=== PATIENT | female | born 1965 ===

== ENCOUNTER 2023-04-16 20:32 | Outpatient (REF) | payer OTHER, SELFPAY ==
[2023-04-22 11:09] LABS: Age Gdln ACOG Testing Note (.); HPV Aptima Negative (Negative); IGP, Aptima HPV, rfx 16/18,45 Note (.)
== END 2023-04-16 20:33 | disposition home or self-care (01) ==
LOC: LAB 20:32
PROVIDERS: Visit Provider Obstetrics & Gynecology
DX: Z01.419 Encounter for gynecological examination (general) (routine) without abnormal findings (principal)
CPT/HCPCS: 87624; G0145

== ENCOUNTER 2024-04-28 21:51 | Outpatient (REF) | payer OTHER, SELFPAY ==
--- OUTSIDE RECORDS SUMMARY | 2024-04-28 21:57 | XMS_ITS | CCD ---
Author Organization [facility] Inform ion Partnership [facility] Care Team Providers [facility] Director Name Role Phone Varun Azul Primary Care Provider DR BERENICE CASAREZ Admitting Unavailable LEIDA, DR NG Attending Unavailable DR BERENICE CASAREZ Consulting Unavailable Varun Azul MD Primary Care Provider Varun Azul MD Primary Care Provider VARUN AZUL Attending Unavailable VARUN AZUL Referring Unavailable JORGE ALBERTO, VARUN Harris Primary Care Unavailable JORGE ALBERTO, VARUN Harris Attending Unavailable KIELESTVARUN OVALLES Referring Unavailable KIELESTCHARLETTE, VARUN Harris Primary Care Unavailable JORGE ALBERTO, VARUN Harris Referring Unavailable JORGE ALBERTO, VARUN Harris Primary Care Unavailable BERENICE CASAREZ Referring Unavailable JORGE ALBERTO, VARUN Harris Primary Care Unavailable BAR LYONS Referring Unavailable KIELESTCHARLETTE, VARUN Hraris Primary Care Unavailable BAR LYONS Referring Unavailable KIELESTCHARLETTE, VARUN Harris Primary Care Unavailable BAR LYONS Referring Unavailable JORGE ALBERTO, VARUN Harris Primary Care Unavailable BAR LYONS Admitting Unavailable BAR LYONS Attending Unavailable RUSHERBAR Referring Unavailable HIESTANDVARUN Primary Care Unavailable ESTUARDO WONG Attending Unavailable HIESTCHARLETTE, VARUN Harris Primary Care Unavailable SERENA, BAR Blanton Attending Unavailable RUSHER, BAR A Referring Unavailable RUSHER, BAR A Attending Unavailable RUSHER, BAR A Attending Unavailable RUSHER, BAR A Referring Unavailable RUSHER, BAR Blanton Attending Unavailable Medications Current Medications Medication Drug Class(es) Dates Sig (Normalized) Sig (Original) cephalexin 500 mg oral capsule (16 sources) Cephalosporin Antibacterial Start: 04-16-2023 End: 04-16-2023 take 1 capsule by mouth in the morning, then take 1 capsule by mouth in the evening, then take 1 capsule by mouth at bedtime cephalexin (Keflex) 500 MG capsule Indications: Vaginal irritation Take 1 capsule (500 mg) by mouth in the morning and 1 capsule (500 mg) in the evening and 1 capsule (500 mg) before bedtime. 40 capsule 1 04/16/2023 Active ciprofloxacin 250 mg oral tablet (3 sources) Quinolone Antimicrobial Start: 04-20-2024 End: 04-23-2024 take 1 tablet by mouth in the morning, then take 1 tablet by mouth at bedtime ciprofloxacin HCl (CIPRO) 250 mg tablet Take 1 tablet (250 mg total) by mouth in the morning and 1 tablet (250 mg total) before bedtime. Do all this for 3 days. 6 tablet 04/20/2024 04/23/2024 Active ciprofloxacin (C ipro) 500 MG tablet Take by mouth Active clobetasol propionate 0.5 mg/ml topical cream (17 sources) Corticosteroid Start: 04-16-2023 End: 04-23-2023 clobetasol (Temovate) 0.05 % cream Indications: Vaginal irritation Apply 1 application topically in the morning and 1 application before bedtime. Do all this for 7 days. Apply to affected area twice a day. 45 g 1 04/16/2023 04/23/2023 Active Clobetasol Propi jonh (Clobetasol 17 Propionate) 0.5 % powder Clobetasol 17 Propionate Active Clobetasol Propi jonh (Clobetasol 17 Propionate) 0.5 % powder Clobetasol 17 Propionate 0 Active losartan potassium 50 mg oral tablet (3 sources) Angiotensin 2 Receptor Snow Start: 12-22-2023 take 1 tablet by mouth in the morning losartan (COZAAR) 50 mg tablet Indications: Primary hypertension TAKE 1 TABLET (50 MG TOTAL) BY MOUTH IN THE MORNING 90 tablet 3 12/22/2023 Active Misc Natural Products ([employer]) tablet (15 sources) Misc Natural Products ([employer]) tablet as directed Orally Active Misc Natural Pro ducts ([employer]) tablet as directed Orally 0 Active omeprazole 20 mg delayed release oral capsule (19 sources) Proton Pump Inhibitor take 1 capsule by mouth in the morning omeprazole (PriLOSEC) [address] capsule Take 20 mg by mouth in the morning. Active Comment on above: Take 20 mg by mouth once daily. PARoxetine hydrochloride 10 mg oral tablet (19 sources) Serotonin Reuptake Inhibitor Start: 3 PARoxetine (Paxil) 10 MG tablet TAKE 1 TABLET (10MG) ON MON AND FRI THEN 1/2 TABLET (5MG) THER REST OF THE DAYS OF THE WEEK 09/25/2022 Active PARoxetine (PAXI L) 10 mg tablet Take 10 mg by mouth once daily. Patient takes 1 tab Mon and Fri. Patient takes 1/2 a tab Tue, Wed, Thur, Sat and Sun 0 Active Comment on above: Take 10 mg by mouth once daily. Patient takes 1 tab Mon and Fri. Patient takes 1/2 a tab Tue, Wed, Thur, Sat and Sun rosuvastatin calcium 10 mg oral tablet (18 sources) HMG-CoA Reductase Inhibitor Start: 3 take 1 tablet by mouth at bedtime rosuvastatin (Crestor) 10 MG tablet Take 1 tablet by mouth at bedtime 12/09/2022 Active solifenacin succinate 5 mg oral tablet (4 sources) Cholinergic Muscarinic Antagonist Start: 4 take 1 tablet by mouth in the morning solifenacin (VESICARE) 5 mg tablet Take 1 tablet (5 mg total) by mouth in the morning. 90 tablet 3 11/20/2023 Active take 2 tablets by mouth once peter ly solifenacin (VESICARE) 5 mg tablet Take 10 mg by mouth once daily. 0 Active Comment on above: Take 10 mg by mouth once daily. soy isofla/blk cohosh/mag bark (ESTROVEN ORAL) (3 sources) soy isofla/blk c ohosh/mag bark (ESTROVEN ORAL) Take 1 tablet by mouth. Active Completed/Discontinued Medications Medication Drug Class(es) Dates Sig (Normalized) Sig (Original) alendronic acid 70 mg oral tablet (1 source) Bisphosphonate Start: 06-12-2018 End: 03-24-2024 alendronate (FOSAMAX) 70 mg tablet 06/12/2018 03/24/2024 Discontinued (Surgery) cyclobenzaprine hydrochloride 10 mg oral tablet (1 source) Muscle Relaxant Start: 06-12-2023 End: 03-24-2024 take 1 tablet by mouth once daily as needed for muscle spasms cyclobenzaprine (FLEXERIL) 10 mg tablet Take 1 tablet (10 mg total) by mouth nightly as needed for muscle spasms. 15 tablet 06/12/2023 03/24/2024 Discontinued (Therapy completed) lovastatin 20 mg oral tablet (6 sources) HMG-CoA Reductase Inhibitor End: 12-03-2023 take 1 tablet by mouth in the morning lovastatin (Mevacor) 20 MG tablet Take 20 mg by mouth in the morning. 12/03/2023 Discontinued (Discontinued by another clinician) Comment on above: Take 20 mg by mouth daily at bedtime. SOY ISOFLA/BLK COHOSH/MAG BARK (ESTROVEN ORAL) (1 source) SOY ISOFLA/BLK COHOSH/MAG BARK (ESTROVEN ORAL) Take by mouth. 0 Active Comment on above: Take by mouth. Problems Active Problems Problem Classification Problem Date Documented Date Episodic/Chronic Acquired foot deformities (9 sources) Acquired hallux limitus of left great toe; Translations: [Other deformities of toe(s) (acquired), left foot] 12-03-2023 Episodic Anxiety disorders (3 sources) Anxiety; Translations: [Anxiety disorder, unspecified] 11-02-2021 Chronic Disorders of lipid metabolism (4 sources) Hyperlipidemia; Translations: [Hyperlipidemia, unspecified] Onset: 2 11-02-2021 Chronic Essential hypertension (7 sources) Hypertensive disorder; Translations: [Essential (primary) hypertension] Onset: 3 03-25-2024 Chronic Immunizations and screening for infectious disease (1 source) Encounter for screening for human papillomavirus (HPV); Translations: [ENC SCREENING HUMAN PAPILLOMAVIRUS] Onset: 3 Episodic Osteoarthritis (9 sources) 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; Translations: [Primary osteoarthritis, left ankle and foot] 12-03-2023 Chronic Other aftercare (4 sources) Postoperative visit; Translations: [Encounter for other specified surgical aftercare] 04-14-2024 Episodic Other bone disease and musculoskeletal deformities (3 sources) Osteopenia; Translations: [Other specified disorders of bone density and structure, multiple sites] 11-02-2021 Episodic Other connective tissue disease (1 source) Bone spur of left foot; Translations: [Other enthesopathy of left foot and ankle] 03-26-2024 Episodic Other female genital disorders (1 source) Vaginal irritation; Translations: [Other specified noninflammatory disorders of vagina] 04-16-2023 Episodic Other nervous system disorders (5 sources) Difficulty walking; Translations: [Difficulty in walking, not elsewhere classified] 12-03-2023 Chronic Other non-traumatic joint disorders (7 sources) Pain of joint of left foot; Translations: [Pain in left ankle and joints of left foot] 12-03-2023 Episodic Unclassified (1 source) Pre-op Exam Onset: 5 Unclassified (1 source) Halus limitus left foot; Osteoarthritis left foot; Pain in joint left foot Onset: 5 Past or Other Problems Problem Classification Problem Date Documented Date Episodic/Chronic Mood disorders (3 sources) Mood disorders Onset: 01-01-2023 01-01-2023 Other screening for suspected conditions (not mental disorders or infectious disease) (6 sources) Encounter for screening for malignant neoplasm of cervix; Translations: [Patient encounter status] Onset: 04-10-2022 Episodic Other skin disorders (1 source) Facial swelling Onset: 05-15-2023 Episodic Skin and subcutaneous tissue infections (1 source) Cellulitis of face; Translations: [Cellulitis of face] Onset: 05-15-2023 Episodic Spondylosis; intervertebral disc disorders; other back problems (1 source) Neck pain; Translations: [Cervicalgia] Onset: 04-23-2016 04-23-2016 Episodic Unclassified (1 source) Preprocedural examination done 03-25-2024 Results Test Name Value Interpretation Reference Range Facility XR Foot - left 3 [facility] Result: 3 views left foot: Post-operative, weight-bearing: DP, oblique, lateral: 04/14/2024: Consistent with cheilectomy procedure; demonstrating effective resection of the dorsal osteophyte formation with contouring of the dorsal joint line surfaces. Unremarkable for acute osseous or joint pathology. [facility] Radiology Study observation (narrative) [facility] ECG 12 leadon 03-25-2024 TRACEMASTERVUE [facility] BASIC METABOLIC PANLon 03-24 Anion gap [Moles/Vol] 12 mmol/L Normal 5-15 [facility] Comment on above: Performed By: #### B MP #### [facility] ([id number]) [address], [address] [place] [address] Calcium [Mass/Vol] 10.0 mg/dL Normal 8.5-10.5 [facility] Comment on above: Performed By: #### B MP #### [facility] ([id number]) [address], [address] [place] [address] Chloride [Moles/Vol] 106 mmol/L Normal 98-109 [facility] Comment on above: Performed By: #### B MP #### [facility] ([id number]) [address], [address] [place] [address] CO2 [Moles/Vol] 24 mmol/L Normal 22-32 [facility] Comment on above: Performed By: #### B MP #### [facility] ([id number]) [address], [address] [place] [address] Creatinine [Mass/Vol] 0.85 mg/dL Normal 0.40-1.00 [facility] Comment on above: Result Comment: METH OD TRACEABLE TO IDMS STANDARD Performed By: #### B MP #### [facility] ([id number]) [address], [address] [place] [address] GFR/1.73 sq M.predicted among non-blacks MDRD (S/P/Bld) [Vol rate/Area] 78 mL/min/{1.73_m2} Normal >59 [facility] Comment on above: Result Comment: Reported eGFR is based on the CKD-EPI 2020 equation that does not use a race coefficient. Performed By: #### B MP #### [facility] ([id number]) [address], [address] [place] [address] Glucose [Mass/Vol] 97 mg/dL Normal 65-99 [facility] Comment on above: Performed By: #### B MP #### [facility] ([id number]) [address], [address] [place] [address] Potassium [Moles/Vol] 4.0 mmol/L Normal 3.5-5.0 [facility] Comment on above: Performed By: #### B MP #### [facility] ([id number]) [address], [address] [place] [address] Sodium [Moles/Vol] 142 mmol/L Normal 134-146 [facility] Comment on above: Performed By: #### B MP #### [facility] ([id number]) [address], [address] [place] [address] Urea nitrogen [Mass/Vol] 20 mg/dL Normal 5-23 [facility] Comment on above: Performed By: #### B MP #### [facility] ([id number]) [address], [address] [place] [address] Basic Metabolic Panelon 03-10 Anion gap [Moles/Vol] 12 mmol/L 5 - 15 mmol/L [facility] Calcium [Mass/Vol] 10 mg/dL 8.5 - 10.5 mg/dL [facility] Chloride [Moles/Vol] 106 mmol/L 98 - 109 mmol/L [facility] CO2 [Moles/Vol] 24 mmol/L 22 - 32 mmol/L [facility] Creatinine [Mass/Vol] 0.85 mg/dL 0.40 - 1.00 mg/dL [facility] Comment on above: METHOD TRACEABLE TO IDPA STANDARD eGFR (CKD-EPI)non-race dependent 78 - PINF [facility] Comment on above: Reported eGFR is based on the CKD-EPI 2020 equation that does not use a race coefficient. Glucose [Mass/Vol] 97 mg/dL 65 - 99 mg/dL [facility] Potassium [Moles/Vol] 4 mmol/L 3.5 - 5.0 mmol/L [facility] Sodium [Moles/Vol] 142 mmol/L 134 - 146 mmol/L [facility] Urea nitrogen [Mass/Vol] 20 mg/dL 5 - 23 mg/dL [facility] XR Foot - left 3 [facility] Result: 3 views left foot: Weight-bearing: DP, oblique, lateral: 12/03/2023: Unremarkable for acute osseous or joint pathology. Unremarkable for fracture or stress fracture changes. Mild degenerative arthritic changes of the 1st MTP joint, with deangelo-articular dorsal ectopic osteophyte formation. Metatarsal parabola is acceptable. [facility] 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 Computer aided detection was utilized. FINDINGS: There are scattered areas of fibroglandular density. There are no suspicious masses, calcifications, or areas of architectural distortion. IMPRESSION: No mammographic evidence of malignancy. BI-RADS: BI-RADS 1 - Negative Recommendation: Routine screening mammogram in 1 year. Finalized by Trip Marie MD on 07/28/2023 11:43 AM 1 b MAMM 1 YR Normal [facility] ALT No additional P-5'-P [Ca talytic activity/Vol]on 07-26-2023 ALT [Catalytic activity/Vol] 17 U/L Normal 0-31 [facility] Comment on above: Performed By: #### 1 744-2, 1919-10, 14286-2 #### [facility] ([id number]) [address] [facility] [address], [address] [place] [address] Germania 07-26-2023 AST [Catalytic activity/Vol] 16 U/L Normal 0-41 [facility] Comment on above: Performed By: #### 1 744-2, 1919-10, 94571-2 #### [facility] ([id number]) [address], [address] [place] [address] Lipid 1996 panelon 4 Cholesterol [Mass/Vol] 197 mg/dL Normal 150-200 [facility] Comment on above: Performed By: #### 1 744-2, 1919-10, 84183-8 #### [facility] ([id number]) [address], [address] [place] [address] Cholesterol in HDL [Mass/Vol] 58 mg/dL Normal >39 [facility] Comment on above: Result Comment: HDL <40 mg/dL - High Risk HDL > or = 40mg/dL- Desirable HDL >60 mg/dL - Negative Risk Performed By: #### 1 744-2, 1919-10, 06189-5 #### [facility] ([id number]) [address], [address] [place] [address] Cholesterol in LDL [Mass/Vol] 108 mg/dL Normal <130 [facility] Comment on above: Result Comment: LDL <100 mg/dL - Desirable LDL >160 mg/dL - High Risk Performed By: #### 1 744-2, 1919-10, 04648-2 #### [facility] ([id number]) [address], [address] [place] [address] Cholesterol in VLDL [Mass/Vol] 31 mg/dL High 0-30 [facility] Comment on above: Performed By: #### 1 744-2, 1919-10, 03226-7 #### [facility] ([id number]) [address], [address] [place] [address] CHOLESTEROL:HDL 3.4 Normal 1.0-5.0 [facility] Comment on above: Performed By: #### 1 744-2, 1919-10, 57096-3 #### [facility] ([id number]) [address], [address] [place] [address] Triglyceride [Mass/Vol] 156 mg/dL High 27-150 [facility] Comment on above: Performed By: #### 1 744-2, 1919-10, #### [facility] ([id number]) [address], [address] [place] [address] IGP,APTIMA HPV,AGE GDLNon AGE GDLN ACOG TESTING Note . [facility] Comment on above: TESTS RESULT FLAG UN ITS REF RANGE LAB Clinician Provided Cytology Information Source.............Vagina LMP / Prev Treat...Hyst Tot No. of containers..01 ThinPrep Vial Age Algo ACOG Yarely... 3065 01 FLAG LEGEND: L-Low Normal,H-High Normal,LL-Alert Low,HH-Alert High <-Panic Low,>-Panic High,A-Abnormal,AA-Critical Abnormal Performed at: 01 =[facility] [facility] [place] [address] Aga Graf MD, HPV APTIMA Negative Negative [facility] e Comment on above: This nucleic acid am plification test detects fourteen high- risk HPV types (16,18,31,33,35,39,45,51,52,56,58,59,66,68) without differentiation. Performed at: =G - [facility] [id number] Cooker Chip: Aga Graf MD, Phone: [phone] Performed at: - [facility], [place] [id number] Cooker Chip: Aga Graf MD, Phone: [phone] IGP, APTIMA HPV, RFX 16/18,45 Note . [facility] Comment on above: TESTS RESULT FLAG UN ITS REF RANGE LAB DIAGNOSIS: 02 NEGATIVE FOR INTRAEPITHELIAL LESION OR MALIGNANCY. CELLULAR CHANGES ASSOCIATED WITH ATROPHY AND INFLAMMATION ARE PRESENT. Specimen adequacy: 02 Satisfactory for evaluation. No endocervical cells are present. This is consistent with a history of hysterectomy. Performed by: Jakub Helton, Diagrammer And Seamer ([facility]) . 02 Note: Note 02 The Pap smear is a screening test designed to aid in the detection of premalignant and malignant conditions of the uterine cervix. It is not a diagnostic procedure and should not be used as the sole means of detecting cervical cancer. Both false-positive and false-negative reports do occur. Test Methodology: Note 02 This liquid based ThinPrep(R) pap test was screened with the use of an image guided system. HPV Genotype Reflex Note 02 Criteria not met, HPV Genotype not performed. FLAG LEGEND: L-Low Normal,H-High Normal,LL-Alert Low,HH-Alert High <-Panic Low,>-Panic High,A-Abnormal,AA-Critical Abnormal Performed at: 02 WB [facility] [address] [place] [address] Aga Graf MD, SPATULA-ALONE VAGINA [facility] PAP ACOG PANEL 2: 30 to 65on 04-16-2022 . . Normal [facility] Comment on above: Result Comment: Perf ormed at: WB Performed By: #### 4 [id number] #### [facility] [address] [address] [address] Abram Montague Age Gdln ACOG Testing 30-65 Normal [facility] Comment on above: Performed By: #### 4 [id number] #### [facility] [address] [address] [address] Abram Montague DIAGNOSIS: Comment Normal [facility] Comment on above: Result Comment: NEGA TIVE FOR INTRAEPITHELIAL LESION OR MALIGNANCY. CELLULAR CHANGES ASSOCIATED WITH ATROPHY ARE PRESENT. Performed at: WB Performed By: #### 4 [id number] #### [facility] [address] [address] [address] Abram Montague HPV Aptima Negative Normal Negative [facility] Comment on above: Result Comment: This nucleic acid amplification test detects fourteen high-risk HPV types (16,18,31,33,35,39,45,51,52,56,58,59,66,68) without differentiation. Performed at: =G Performed By: #### [id number] #### [facility] [address] [address] [address] Abram Montague HPV Genotype Reflex Comment Normal [facility] Comment on above: Result Comment: Crit aaron not met, HPV Genotype not performed. Performed at: WB Performed By: #### 4 [id number] #### [facility] [address] [address] [address] Abram Montague Methodology: Comment [facility] Comment on above: Result Comment: This liquid based ThinPrep(R) pap test was screened with the use of an image guided system. Performed at: WB Performed By: #### 4 [id number] #### [facility] [address] [place] [address] Dr. Abram Montague Note: Comment Normal [facility] Comment on above: Result Comment: The Pap smear is a screening test designed to aid in the detection of premalignant and malignant conditions of the uterine cervix. It is not a diagnostic procedure and should not be used as the sole means of detecting cervical cancer. Both false-positive and false-negative reports do occur. . Performed at: WB Performed By: #### [id number] #### [facility] [address] [place] [address] Dr. Abram Montague Performed by: Comment Normal [facility] Comment on above: Result Comment: Tia Pimentel, Diagrammer And Seamer ([facility]) Performed at: WB Performed By: #### [id number] #### [facility] [address] [place] [address] Dr. Abram Montague Specimen adequacy: Comment Normal [facility] Comment on above: Result Comment: Sati sfactory for evaluation. Endocervical component may not be distinguished in cases of atrophy. Performed at: WB Performed By: #### [id number] #### [facility] [address] [place] [address] Dr. Abram Montague Vital Signs Date Time Vital Sign Value Performing Clinician Facility 04-21-2024 12:50-0500 Body height 162.6 cm Bar HERRERAM Work Phone: [facility] 04-21-2024 12:50-0500 Body mass index (BMI) [Ratio] 29.18 kg/m2 Bar Lyons DPM Work Phone: [facility] 04-21-2024 12:50-0500 Body weight 77.11 kg Bar HERRERAM Work Phone: [facility] 04-14-2024 12:54-0500 Body height 162.6 cm Bar Lyons DPM Work Phone: [facility] 04-14-2024 12:54-0500 Body mass index (BMI) [Ratio] 29.18 kg/m2 Bar Serena DPM Work Phone: [facility] 04-14-2024 12:54-0500 Body temperature 97.7 [degF] Bar Serena DPM Work Phone: [facility] 04-14-2024 12:54-0500 Body weight 77.11 kg Bar Serena DPM Work Phone: [facility] 03-26-2024 11:29-0500 Body mass index (BMI) [Ratio] 31.41 kg/m2 Varun Azul MD Work Phone: [facility] 03-26-2024 11:29-0500 Body weight 83.01 kg Varun Azul MD Work Phone: [facility] 03-26-2024 11:29-0500 Diastolic blood pressure 84 mm[Hg] Varun Azul MD Work Phone: [facility] 03-26-2024 11:29-0500 Heart rate 79 /min Varun Azul MD Work Phone: [facility] 03-26-2024 11:29-0500 Systolic blood pressure 168 mm[Hg] Varun Azul MD Work Phone: [facility] 03-24-2024 14:56-0500 Body height 162.6 cm P[facility] 2 [facility] 03-24-2024 14:56-0500 Body mass index (BMI) [Ratio] 30.04 kg/m2 P[facility] 2 [facility] 03-24-2024 14:56-0500 Body weight 79.38 kg Pmh 2 [facility] 03-24-2024 13:11-0500 Body height 162.6 cm Bar Lyons DPM Work Phone: [facility] 03-24-2024 13:11-0500 Body mass index (BMI) [Ratio] 29.18 kg/m2 Bar Lyons DPM Work Phone: [facility] 03-24-2024 13:11-0500 Body weight 77.11 kg Bar Lyons DPM Work Phone: [facility] 12-03-2023 15:14-0400 Body height 162.6 cm Bar Lyons DPM Work Phone: [facility] 12-03-2023 15:14-0400 Body mass index (BMI) [Ratio] 29.18 kg/m2 Bar Lyons DPM Work Phone: [facility] 12-03-2023 15:14-0400 Body weight 77.11 kg Bar Lyons DPM Work Phone: [facility] 04-16-2023 16:32-0500 Body mass index (BMI) [Ratio] 28.41 kg/m2 Berenice Leida DO Work Phone: [facility] 04-16-2023 16:32-0500 Body weight 79.83 kg Berenice Leida DO Work Phone: [facility] 04-16-2023 16:32-0500 Diastolic blood pressure 78 mm[Hg] Berenice Leida DO Work Phone: [facility] 04-16-2023 16:32-0500 Systolic blood pressure 126 mm[Hg] Berenice Leida DO Work Phone: 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 Start: 04-21-2024 End: 04-21-2024 ambulatory BAR LYONS Not Available Start: 04-20-2024 End: 04-20-2024 Telephone encounter Veronica Olivares YUN [facility] Start: 04-14-2024 End: 04-14-2024 Bamboo flowsheet Bar Lyons DPM Work Phone: [facility] Start: 04-14-2024 End: 04-14-2024 Bamboo flowsheet Bar Lyons DPM Work Phone: [facility] Start: 04-14-2024 End: 04-14-2024 Postop follow up visit related to original px Bar Lyons DPM Work Phone: [facility] Comment on above: Postoperative visit (Primary Dx); Acquired hallux limitus of left foot; 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; Pain in joint of left foot Start: 04-14-2024 End: 04-14-2024 ambulatory BAR LYONS Not Available Start: 04-09-2024 End: 04-09-2024 Evaluation and management of inpatient ESTUARDO Deandre WONG [facility] Start: 04-09-2024 End: 04-09-2024 Patient encounter procedure Bar Lyons DPM Work Phone: [facility] Comment on above: Acquired hallux limi tus of left foot (Primary Dx); 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; Pain in joint of left foot; Difficulty walking Start: 04-09-2024 End: 04-09-2024 Evaluation and management of inpatient BAR LYONS [facility] Start: 03-26-2024 End: 03-26-2024 Office outpatient visit 15 minutes Varun Azul MD [facility] Comment on above: Bone spur of left fo ot (Primary Dx); Primary hypertension Start: 03-26-2024 End: 03-26-2024 ambulatory SADI [facility] Start: 03-24-2024 End: 03-24-2024 Patient encounter procedure [facility] Pre-Admission Testing 2 [facility] - Pre Admit Comment on above: Preop examination (P rimary Dx); Hypertension, unspecified type Start: 03-24-2024 End: 03-24-2024 Preprocedural examination done Pm 2 [facility] Start: 03-24-2024 End: 03-24-2024 ambulatory BAR LYONS [facility] Start: 03-24-2024 Encounter for other preprocedural examination [facility] Start: 03-24-2024 End: 03-24-2024 [employer] Naturalsheet Bar Lyons DPM Work Phone: [facility] Start: 03-24-2024 End: 03-24-2024 [employer] flowsheet Bar Lyons DPM Work Phone: [facility] Start: 03-24-2024 End: 03-24-2024 Office outpatient visit 15 minutes Bar Lyons DPM Work Phone: [facility] Comment on above: Acquired hallux limi tus of left foot (Primary Dx); 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; Pain in joint of left foot; Difficulty walking Start: 03-24-2024 End: 03-24-2024 ambulatory BAR LYONS Not Available Start: 12-03-2023 End: 12-03-2023 Office outpatient new 45 minutes Bar Lyons DPM Work Phone: [facility] Comment on above: Acquired hallux limi tus of left foot (Primary Dx); 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; Pain in joint of left foot; Difficulty walking Start: 12-03-2023 End: 12-03-2023 ambulatory BAR LYONS Not Available Start: 12-03-2023 End: 12-03-2023 Bamboo flowsheet Bar Lyons DPM Work Phone: [facility] Start: 12-03-2023 End: 12-03-2023 Bamboo flowsheet Bar Lyons DPM Work Phone: [facility] Start: 07-26-2023 End: 07-26-2023 ambulatory BERENICE Hue VAZQUEZO [facility] Start: 05-15-2023 End: 05-15-2023 ambulatory [facility] Ambulatory [facility] Start: 04-16-2023 End: 04-16-2023 Patient encounter procedure Berenice Casarez DO Work Phone: [facility] Healthcare Work Phone: Start: 04-16-2023 End: 04-16-2023 Periodic preventive med est patient 40-64yrs Berenice Leida DO Work Phone: [facility] Comment on above: Well woman exam with routine gynecological exam; Breast cancer screening by mammogram; Vaginal irritation Start: 04-16-2023 Clinisync Result Encounter Cor wilder Leida DO Work Phone: [facility] External [facility] Unsolicited Start: 04-16-2023 Clinisync Result Encounter Cor wilder Leida DO Work Phone: [facility] Unsolicited Start: 04-10-2022 End: 04-10-[address] BERENICE CASAREZ Facility: Start: 02-21-2016 End: 02-21-2016 Telephone encounter Raymond Bhandari DO Work Phone: [facility] Comment on above: Appointment Procedures Date Procedure Procedure Detail Performing Clinician Start: 04-14-2024 Radex foot complete minimum 3 views Bar Lyons DPM Work Phone: Start: 12-03-2023 Radex foot complete minimum 3 views Bar Lyons DPM Work Phone: Start: 07-28-2023 Mammography Bar clifford DPM Work Phone: Start: 04-16-2023 IGP,APTIMA HPV,AGE GDLN Berenice Vazquezo DO Work Phone: Start: 01-01-2023 Adult depression scr eening assessment P[facility] 2 Start: 06-22-2022 Mammography Berenice Fazi o DO Work Phone: Start: 08-17-2018 Colonoscopy [facility] 2 Plan of Treatment Date Care Activity Detail Author Start: 08-17-2028 Screening for malign ant neoplasm of colon Colonoscopy [facility] Start: 04-09-2025 Adult BMI Screening Adult BMI Screen ing [facility] Start: 04-09-2025 Tobacco Screening Tobacco Screening [facility] Start: 03-24-2025 Adult BMI Screening Adult BMI Screen ing [facility] Start: 03-24-2025 Tobacco Screening Tobacco Screening [facility] Start: 07-27-2024 Screening for malign ant neoplasm of breast Mammogram [facility] Start: 07-27-2024 End: 07-27-2024 Patient encounter procedure 07/27/2024 8:30 AM EDT [facility] [address] [place] [phone] Varun Azul MD [address] [place] [address], [address] [place], [place] [phone] [facility] Start: 05-05-2024 End: 05-05-2024 Patient encounter procedure 05/05/2024 1:30 PM EST Office Visit [facility] [address] [place] [phone] Bar Lyons DPM [address] [place], [place] [phone] [facility] Start: 04-28-2024 End: 04-28-2024 Patient encounter procedure 04/28/2024 4:00 PM EST Office Visit [facility] OB [address] [place] [address] Berenice Casarez, DO [address] [place] [address] [facility] Start: 04-21-2024 End: 04-21-2024 Patient encounter procedure [facility] Comment on above: Arrived Start: 04-14-2024 End: 04-14-2024 Patient encounter procedure [facility] Comment on above: Arrived Start: 04-09-2024 End: 04-09-2024 Admission to same day surgery center 04/09/2024 7:30 AM EST - 04/09/2024 9:00 AM EST Surgery [facility] Surgery [address] [place] [address] Bar Lyons, PEARL [address] [place], [place] [phone] EXCISION CHEILECTOMY TOE [85822 (CPT )] [facility] Comment on above: EXCISION CHEILECTOMY TOE [70396 (CPT )] Start: 04-09-2024 End: 04-09-2024 Anesthesia consultation 04/09/2024 7:30 AM EST Anesthesia Event [facility] [address] [place] [phone] Estuardo Wong, DO [address] [place] [address] [facility] Start: 04-09-2024 End: 04-09-2024 Hallux rigidus w/cheilectomy 1st mp jt w/o implt EXCISION CHEILECTOMY TOE Halus limitus left foot; Osteoarthritis left foot; Pain in joint left foot 04/09/2024 7:30 AM EST [facility] Start: 04-09-2024 End: 04-09-2024 Patient encounter procedure 04/09/2024 7:30 AM EST Procedure Visit [facility] Bar Lyons, SHARONM [address] [place] [address] [facility] Start: 04-09-2024 Subsequent hospital visit by physician 04/09/2024 7:30 AM EST Hospital Encounter [facility] Surgery [address] [place] [phone] Bar Lyons, SHARONM [address] [place], [place] [phone] [facility] Start: 03-26-2024 End: 03-26-2024 Patient encounter procedure 03/26/2024 11:30 AM EST Office Visit [facility] [address] [place] [address] [address] [place] [phone] Varun Azul MD [facility], [address] [place], [place] [phone] [facility] Start: 03-24-2024 End: 03-24-2024 Patient encounter procedure [facility] Comment on above: Arrived Start: 01-02-2024 Depression Screening Depression Scre [facility] Start: 12-03-2023 End: 12-03-2023 Patient encounter procedure 12/03/2023 3:30 PM EDT Office Visit [facility] [address] [place] [phone] Bar Lyons DPM [address] [place], [place] [phone] Arrived [facility] Comment on above: Arrived Start: 11-09-2023 COVID-19 Vaccine ( season) COVID-19 Vaccine ( season) [facility] Start: 11-09-2023 Influenza vaccination Influenza Vacc ine (#1) [facility] Start: 06-23-2023 Screening for malign ant neoplasm of breast Mammogram [facility] Start: 04-16-2023 End: 06-14-2024 MG Breast - bilateral Screening Bilateral screening mammogram Imaging Routine Breast cancer screening by mammogram Expected: 04/16/2023, Expires: 06/14/2024 [facility] Work Phone: Comment on above: Expected: 04/16/2023 , Expires: 06/14/2024 Start: 11-08-2020 Influenza vaccination INFLUENZA (Sea son Ended) [facility] Start: 2013 Administration of varicella zoster vaccine Zoster (Shingles) Vaccine (1 of 2) [facility] Start: 2013 Screening for malign ant neoplasm of colon [facility] Start: 2013 SHINGRIX VACCINE (1 of 2) SHINGRIX VACCINE (1 of 2) [facility] Start: 2008 DIABETES SCREEN DIABETES SCREEN [facility] Start: 2008 LIPID SCREEN LIPID SCREEN [facility] Start: 2003 Mammography MAMMOGRAM [facility] Start: 1993 HPV TESTING HPV TESTING [facility] Start: 1993 Screening for malign ant neoplasm of cervix [facility] Start: 1984 PAP TESTING PAP TESTING [facility] Start: 1984 Screening for malign ant neoplasm of cervix Pap Smear [facility] Start: 1982 DTaP,Tdap and Td Vaccines (1 - Tdap) DTaP,Tdap and Td Vaccines (1 - Tdap) [facility] Start: 1982 Urine microalbumin profile DTAP,TDAP,TD (1 - Tdap) [facility] Start: 1981 Adult BMI Follow Up Plan Adult BMI F ollow Up Plan [facility] Start: 1981 HEPATITIS C SCREENING HEPATITIS C SC REENING [facility] Start: 1981 HIV SCREENING HIV SCREENING [facility] Start: 1975 Adult depression screening assessment DEPRESSION SCREENING [facility] Start: 1963 Screening for malign ant neoplasm of colon [facility] THIN PREP TIS PAP AN D HR HPV DNA THIN PREP TIS PAP AND HR HPV DNA Pathology and Cytology Routine Well woman exam with routine gynecological exam Ordered: 04/16/2023 [facility] Comment on above: Ordered: 04/16/2023 Immunizations Immunization Date Immunization Notes Care Provider Tomeka ventura 01-09-2024 influenza, injectabl e, madin valerie canine kidney, preservative free [facility] 2 [facility] 01-16-2023 influenza, injectabl e, quadrivalent, preservative free [facility] 2 [facility] 01-16-2023 influenza virus vaccine, unspecified formulation Bar Lyons DPM Work Phone: [facility] 01-11-2022 Covid-19, Mrna, Lnp- s, Bivalent, Pf, 50mcg/0.5ml or 25mcg/0.25ml [facility] 2 [facility] 01-04-2022 influenza, injectabl e, quadrivalent, preservative free [facility] 2 [facility] 12-21-2020 influenza, injectabl e, quadrivalent, preservative free [facility] 2 [facility] 04-14-2020 COVID-19, mRNA, LNP- S, PF, 100mcg/0.5mL Dose [facility] 2 [facility] 03-20-2020 COVID-19, mRNA, LNP- S, PF, 100mcg/0.5mL Dose [facility] 2 [facility] Payers Date Payer Category Payer Commercial Managed C are - PPO [id number] 2024 Private Health Insurance [employer] [id number] 2024 Unknown [id number] 2015 Managed Care HMO (unspecified) AET[employer] AETNA [id number] 2015-Present [address] [place] [address] HMO [id number] 2015 Private Health Insurance AETNA A ETNA CHOICE POS II [id number] 2015-Present POS [id number] 1963 Unknown [id number] [id number]. 593 1963 Unknown [id number] 2.16840.1.805284.3.579.2. 1286 1963 Unknown [id number] 2.840.1.505781.3.579.2. 1285 1963 Unknown [id number] 2.16840.1.308268.3.579.2. 128 1963 Unknown [id number] 2.16.840.1.098941.3.579.2. 128 1963 Unknown [id number] 2.16.840.1.524721.3.579.2. 1286 1963 Unknown [id number] 2.16840.1.182320.3.579.2. 128 1963 Unknown [id number] 2.16.840.1.736630.3.579.2. 1286 1963 Unknown [id number] 2.16840.1.654545.3.579.2. 128 1963 Unknown [id number] 2.16.840.1.453991.3.579.2. 128 1963 Unknown [id number] 2.16840.1.839865.3.579.2. 128 1963 Unknown [id number] 2.16.840.1.694757.3.579.2. 1259 1963 Unknown [id number] 2.16.840.1.403942.3.579.2. 1258 1963 Unknown [id number] 2.16.840.1.098995.3.579.2. 9 1963 Unknown [id number] 2.16.840.1.845007.3.579.2. 1258 1963 Unknown [id number] 2.16.840.1.111770.3.579.2. 9 1963 Unknown [id number] 2.16.840.1.964394.3.579.2. 1259 1959 Private Health Insurance [id number] Social History Date Type Detail Facility Start: 02-15-2016 End: 12-03-2023 Tobacco smoking status [facility] Never smoker [facility] Start: 02-15-2016 End: 12-03-2023 Tobacco use and exposure Never used [facility] Start: 02-15-2016 Alcohol intake Not Asked [facility] Start: 1965 Sex Assigned At Not on file [facility] Start: 04-16-2023 End: 04-21-2024 Alcohol intake Current drinker of alcohol (finding) [facility] Start: 03-25-2023 End: 04-21-2024 History of Social function [facility] Start: 03-25-2023 End: 04-21-2024 Tobacco use panel [facility] Start: 03-25-2023 Alcohol Comment Occasional alcohol use [facility] Start: 1965 Sex Assigned At Female [facility] Start: 04-16-2023 Gender identity Identifies as female gender (finding) [facility] Start: 04-16-2023 Sexual orientation Heterosexual (finding) [facility] Start: 12-03-2023 Alcohol Comment [facility] Adolescent depressio n screening assessment 0 [facility] Start: 07-08-2018 Alcohol Comment SOCIAL [facility] Start: 10-13-2014 Sex Female (finding) [facility] Medical Equipment Procedure Code Equipment Code Equipment Origin al Text Equipment Identifier Dates [employer] Flowable Placental Tissue Matrix [id number] Start: 04-09-2024 Clinical Notes 02-21-2016 to 04-21-2024 Bar Lyons DPM - 04/21/2024 1:00 PM ESTPatient InstructionsTelephone Encounter - YUN Adam - 04/20/2024 8:30 AM ESTTelephone Encounter - Varun Azul MD - 04/20/2024 8:30 AM EST Note Date & Type Note Facility 04-21-2024 History of Present illness Narrative Images from the original note were not included. Subjective Patient ID: Harini Case is a 59 y.o. female who presents for Post-op (Pt is here today for her 2nd POV, she states some quick shooting pain described as zingers random times. ). HPI Post-operative assessment. Procedure: Cheilectomy with osteochondral plasty and lysis of capsular adhesions; with mobilization of the sesamoid construct and via flow amniotic tissue injection left foot. Date of procedure: 04/09/2024. Reports mild surgical site discomfort; however with intermittent bouts of neuritis-like symptoms, lasting for about 5 seconds or so, which she describes as zingers . Symptoms generally well-controlled with ibuprofen as needed. Denies streaking or constitutional symptoms. Reports no drainage through the dressing. Compliance is good. Toe Pain Medications Current Outpatient Medications: cephalexin (Keflex) 500 MG capsule, Take 1 capsule (500 mg) by mouth in the morning and 1 capsule (500 mg) in the evening and 1 capsule (500 mg) before bedtime., Disp: 40 capsule, Rfl: 1 ciprofloxacin (Cipro) 500 MG tablet, Take by mouth, Disp: , Rfl: Clobetasol Propionate (Clobetasol 17 Propionate) 0.5 % powder, Clobetasol 17 Propionate, Disp: , Rfl: Misc Natural Products ([employer]) tablet, as directed Orally, Disp: , Rfl: omeprazole (PriLOSEC) [address] capsule, Take 20 mg by mouth in the morning., Disp: , Rfl: PARoxetine (Paxil) 10 MG tablet, TAKE 1 TABLET (10MG) ON MON AND FRI THEN 1/2 TABLET (5MG) THER REST OF THE DAYS OF THE WEEK, Disp: , Rfl: rosuvastatin (Crestor) 10 MG tablet, Take 1 tablet by mouth at bedtime, Disp: , Rfl: Allergies Patient has no known allergies. Past Surgical History Past Surgical History: Procedure Laterality Date CHEILECTOMY Right 12/23/2014 RAQUEL HYSTERECTOMY 1998 Family History Family History Problem Relation Name Age of Onset Hypertension Mother Latoya Pamela Hyperlipidemia Mother Latoya Pamela Hyperlipidemia Father Edgardo Pamela Hypertension Father Edgardo Pamela Hypertension Maternal Grandmother Lyubov Rodriges Cancer Maternal Grandmother Lyubov [place] Cancer Maternal Grandfather Jaspreet Rodriges Hypertension Paternal Grandmother Edwige Santiago Stroke Paternal Grandmother Edwige Santiago CVA (cerebral infarction) Hypertension Paternal Grandfather Adam Santiago Heart disease Paternal Grandfather Adam Santiago Cancer Sibling Objective General Examination: GENERAL APPEARANCE: alert and oriented. Pleasant disposition. Presents ambulatory with Darco shoe in place. Accompanied by her spouse, Agustin. Vascular: DORSALIS PEDIS PULSE: 2/4, bilaterally. POSTERIOR TIBIAL PULSE: 2/4, bilaterally. TEMPERATURE GRADIENT: warm to warm. EDEMA: Unremarkable ankle edema. CAPILLARY FILLING TIME(sec): capillary fill intact bilateral digits less than 3 secs. Neurologic: TINELS SIGN: negative along the tarsal canal. SHARP SENSATION: tactile and light touch sensation intact. Dermatologic: SKIN FINDINGS: Skin turgor is good. Well healed, non-dystrophic scar line 1st MTP joint right foot. HYPERTROPHIC LESION: no forefoot or digital keratotic pressure lesions are noted. NAIL PATHOLOGY: non-dystrophic. SKIN PATHOLOGY: texture, turgor, hair growth, within normal limits. Orthopedic: FOOT MORPHOLOGY: stance assessment: Symmetrical, stable, rectus foot alignment. JOINT RANGE OF MOTION: maintains functional ankle and subtalar joint range of motion bilateral. Right foot: Maintains > 60 degrees passive dorsiflexion 1st MTP joint; end range of motion is spongy and non-tender. DEFORMITIES: PAIN ELICITED WITH PALPATION OF: Focused exam left foot: Dressing is intact and clean without drainage. Incision well apposed primary intention, without incisional drainage or dehiscence. Mild deangelo-incisional blanchable erythema, without cellulitis or clinical evidence of infection. Mild surgical site swelling without soft tissue fluctuance. Unremarkable for streaking. CFT brisk. PAIN ELICITED WITH ROM: MUSCLE STRENGTH: no focal deficits. Radiology: Radiographs: 3 views left foot: Post-operative, weight-bearing: DP, oblique, lateral: 04/14/2024: Consistent with cheilectomy procedure; demonstrating effective resection of the dorsal osteophyte formation with contouring of the dorsal joint line surfaces. Unremarkable for acute osseous or joint pathology. Radiographs: 3 views left foot: Weight-bearing: DP, oblique, lateral: 12/03/2023: Unremarkable for acute osseous or joint pathology. Unremarkable for fracture or stress fracture changes. Mild degenerative arthritic changes of the 1st MTP joint with deangelo-articular dorsal ectopic osteophyte formation, consistent with dorsal bunion deformity. Assessment/Plan POD #12: Cheilectomy with osteochondral plasty and lysis of capsular adhesions; with mobilization of the sesamoid construct and via flow amniotic tissue injection left foot (04/09/2024). Healing well without apparent complication. Satisfactory outcome cheilectomy procedure right foot (2014). Plan: Review of clinical and x-ray findings, post-operative course to date and instructions. Left foot: Aseptic technique: All sutures are removed without incident. Steri-Strips applied. Elevation encouraged as needed. Non-immersion cleansing permitted. Recommend aloe vera gel or equivalent several times daily to incision line. Continue use of Darco shoe with weight-bearing as tolerated. Activity: Casual activity as tolerated. Comfort care: Ibuprofen as needed. Procedure: This note was created with the assistance of a speech recognition program. While intending to generate a timely document that accurately reflects the content of the visit, no guarantee can be provided that every grammatical or spelling mistake has been or will be identified or corrected. Thank you for your understanding. Bar Lyons DPM documented in this encounter [facility] 04-21-2024 Instructions Bar Lyons DPM - 04/21/2024 1:00 PM EST As noted documented in this encounter [facility] 04-20-2024 Miscellaneous Notes Patient states has increased urinary frequency, bladder spasms when emptying, and an odor. She took some keflex with no relief and currently taking AZO. She is wanting to know if something else can be called to the pharmacy. Please advise. Cipro script sent to pharmacy Patient notified documented in this encounter [facility] 04-20-2024 Telephone encounter Note Patient states has increased urinary frequency, bladder spasms when emptying, and an odor. She took some keflex with no relief and currently taking AZO. She is wanting to know if something else can be called to the pharmacy. [facility] advise[facility]-20[facility]24 Telephone encounter Note Cipro script sent to pharmacy [facility] 04-20-2024 Telephone encounter Note [facility] 04-14-2024 History of Present illness Narrative Images from the original note were not included. Subjective Patient ID: Harini Case is a 59 y.o. female who presents for POV#1 (Harini Case 59yo presents for Post Op#1. Patient is taking Tylenol 400mg 2x daily.). HPI Post-operative assessment. Procedure: Cheilectomy with osteochondral plasty and lysis of capsular adhesions; with mobilization of the sesamoid construct and via flow amniotic tissue injection left foot. Date of procedure: 04/09/2024. Reports moderate-fairly sharp post-operative discomfort at times; well-controlled with ibuprofen as needed. Patient does not like the feeling of taking Tylenol. Denies streaking or constitutional symptoms. Reports no drainage through the dressing. Compliance is good. Toe Pain Medications Current Outpatient Medications: cephalexin (Keflex) 500 MG capsule, Take 1 capsule (500 mg) by mouth in the morning and 1 capsule (500 mg) in the evening and 1 capsule (500 mg) before bedtime., Disp: 40 capsule, Rfl: 1 Clobetasol Propionate (Clobetasol 17 Propionate) 0.5 % powder, Clobetasol 17 Propionate, Disp: , Rfl: Misc Natural Products ([employer]) tablet, as directed Orally, Disp: , Rfl: omeprazole (PriLOSEC) [address] capsule, Take 20 mg by mouth in the morning., Disp: , Rfl: PARoxetine (Paxil) 10 MG tablet, TAKE 1 TABLET (10MG) ON MON AND FRI THEN 1/2 TABLET (5MG) THER REST OF THE DAYS OF THE WEEK, Disp: , Rfl: rosuvastatin (Crestor) 10 MG tablet, Take 1 tablet by mouth at bedtime, Disp: , Rfl: Allergies Patient has no known allergies. Past Surgical History Past Surgical History: Procedure Laterality Date CHEILECTOMY Right 12/23/2014 RAQUEL HYSTERECTOMY 1998 Family History Family History Problem Relation Name Age of Onset Hypertension Mother Latoya Pamela Hyperlipidemia Mother Latoya Pamela Hyperlipidemia Father Edgardo Pamela Hypertension Father Edgardo Pamela Hypertension Maternal Grandmother Lyubov Rodriges Cancer Maternal Grandmother Lyubov [place] Cancer Maternal Grandfather Jaspreet Rodriges Hypertension Paternal Grandmother Edwige Reyese Stroke Paternal Grandmother Edwige Santiago CVA (cerebral infarction) Hypertension Paternal Grandfather Adam Santiago Heart disease Paternal Grandfather Adam Santiago Cancer Sibling Objective General Examination: GENERAL APPEARANCE: alert and oriented. Pleasant disposition. Presents ambulatory with Darco shoe in place right. Accompanied by her spouse, Agustin. Vascular: DORSALIS PEDIS PULSE: 2/4, bilaterally. POSTERIOR TIBIAL PULSE: 2/4, bilaterally. TEMPERATURE GRADIENT: warm to warm. EDEMA: Unremarkable ankle edema. CAPILLARY FILLING TIME(sec): capillary fill intact bilateral digits less than 3 secs. Neurologic: TINELS SIGN: negative along the tarsal canal. SHARP SENSATION: tactile and light touch sensation intact. Dermatologic: SKIN FINDINGS: Skin turgor is good. Well healed, non-dystrophic scar line 1st MTP joint right foot. HYPERTROPHIC LESION: no forefoot or digital keratotic pressure lesions are noted. NAIL PATHOLOGY: non-dystrophic. SKIN PATHOLOGY: texture, turgor, hair growth, within normal limits. Orthopedic: FOOT MORPHOLOGY: stance assessment: Symmetrical, stable, rectus foot alignment. JOINT RANGE OF MOTION: maintains functional ankle and subtalar joint range of motion bilateral. Right foot: Maintains > 60 degrees passive dorsiflexion 1st MTP joint; end range of motion is spongy and non-tender. DEFORMITIES: PAIN ELICITED WITH PALPATION OF: Focused exam left foot: Dressing is intact and clean with minimal drainage. Incision well apposed primary intention, without incisional drainage or dehiscence. Mild deangelo-incisional blanchable erythema, without delma cellulitis. Mild surgical site swelling without soft tissue fluctuance. Unremarkable for streaking. CFT brisk. PAIN ELICITED WITH ROM: MUSCLE STRENGTH: no focal deficits. Radiology: Radiographs: 3 views left foot: Post-operative, weight-bearing: DP, oblique, lateral: 04/14/2024: Consistent with cheilectomy procedure; demonstrating effective resection of the dorsal osteophyte formation with contouring of the dorsal joint line surfaces. Unremarkable for acute osseous or joint pathology. Radiographs: 3 views left foot: Weight-bearing: DP, oblique, lateral: 12/03/2023: Unremarkable for acute osseous or joint pathology. Unremarkable for fracture or stress fracture changes. Mild degenerative arthritic changes of the 1st MTP joint with deangelo-articular dorsal ectopic osteophyte formation, consistent with dorsal bunion deformity. Assessment/Plan POD #5: Cheilectomy with osteochondral plasty and lysis of capsular adhesions; with mobilization of the sesamoid construct and via flow amniotic tissue injection left foot (04/09/2024). Healing well without apparent complication. Satisfactory outcome cheilectomy procedure right foot (2014). Plan: Review of clinical and x-ray findings, post-operative course to date and instructions. Left foot: Surgical site cleansing. Dry sterile multi-layer dressing under mild compression. Dressing intact, clean and dry; not to be removed. Elevation is emphasized and encouraged. Partial weight-bearing status left foot for balance as tolerated; recommend walker or cane assist. Activity: Casual activity as tolerated. Comfort care: Ibuprofen as needed. Procedure: This note was created with the assistance of a speech recognition program. While intending to generate a timely document that accurately reflects the content of the visit, no guarantee can be provided that every grammatical or spelling mistake has been or will be identified or corrected. Thank you for your understanding. Bar Lyons DPM documented in this encounter [facility] 04-14-2024 Instructions Bar Lyons DPM - 04/14/2024 1:00 PM EST As noted documented in this encounter [facility] 04-09-2024 History of Present illness Narrative Outpatient procedure: [facility] Cheilectomy procedure with osteochondral plasty; lysis of capsular adhesions and mobilization of the sesamoidal construct 1st MTP joint left foot. Viaflow amniotic tissue intra-articular injection. Post-procedure instructions provided. documented in this encounter [facility] 04-09-2024 Instructions Bar Lyons DPM - 04/09/2024 7:30 AM EST Instructions as noted documented in this encounter [facility] 03-26-2024 History of Present illness Narrative Subjective Patient ID: Petra Case is a 58 y.o. female. Comes in for preoperative evaluation. She is going to have a bone spur in her left foot removed. Recent EKG and lab reviewed and unremarkable. She has no known cardiac history. No personal or family history of anesthetic reaction or unusual bleeding or clotting. History of hypertension on losartan. Her blood pressure has tended to run a little bit above ideal target when checked here. No chest pain or shortness of breath. No leg edema. The following portions of the patient's history were reviewed and updated as appropriate: allergies, current medications, past family history, past medical history, past social history, past surgical history, and problem list. Review of Systems Objective Physical Exam Constitutional: Comments: Blood pressure above ideal target. She looks well. Neck: Vascular: No carotid bruit. Comments: No thyroid enlargement or neck mass Cardiovascular: Rate and Rhythm: Normal rate and regular rhythm. Heart sounds: No murmur heard. Pulmonary: Effort: Pulmonary effort is normal. Breath sounds: Normal breath sounds. Musculoskeletal: Right lower leg: No edema. Left lower leg: No edema. Neurological: Mental Status: She is alert. Assessment/Plan Medically cleared for the procedure at usual low risk. She will monitor her blood pressure serially at home while resting. Diagnoses and all orders for this visit: Bone spur of left foot Primary hypertension documented in this encounter [employer] 03-24-2024 Instructions Vane Soto RN - 03/24/2024 3:00 PM EST Preoperative Education Checklist- General Surgery date: 04/09/24 Surgery time: 0730 a.m. Arrival time: 0610 a.m. 1. Bring a photo ID and your insurance card with you the day of surgery. You will check in at the main lobby of the [facility]- registration desk is straight ahead as soon as you walk in. Tell them you are here for surgery. 2. If you have a Living Will/Durable Power of Food Technician for Health Care that is not on file here, please bring a copy the day of surgery. 3. Please shower/bathe the night before surgery with the provided soap or wipes. Do not shower the morning of surgery- you will do use wipes when you arrive here at the hospital before getting into your surgical gown. Do not shave the area of your procedure for 2 days prior to your surgery. 4. NO powder, lotion, perfume/cologne, aftershave, make-up, deodorant, or hair products after you have bathed. 5. NO nail upper sorbian/acrylic on at least one finger. If you are having a hand, wrist or foot surgery then all nail upper sorbian and artificial/acrylic nails must be removed from that hand or foot. 6. Avoid ALL Aspirin and non-steroidal anti-inflammatory drugs and certain vitamins (Ibuprofen, Advil, Aleve, Excedrin, Meloxicam, Celebrex, fish/krill oil, etc.) for 7 days prior to surgery as instructed by your surgeon and/or your prescribing doctor. Tylenol IS ALLOWED. If you are on Ticlid, Xarelto, Eliquis, Pradaxa, Plavix or Coumadin, please check with your prescribing doctor for instructions for when to stop them. 7. If you use an inhaler, continue to use it routinely. 8. Nothing to eat or drink (not even water, gum, mints, or hard candy!) AFTER midnight prior to your surgery. 9. Take only medications that you are instructed to on the morning of surgery with a TINY SIP OF WATER. 10. Choose a responsible adult that will be able to drive you home when you are discharged from your hospital stay for your surgery and can stay with you in your home for 24 hours after your procedure. You must NOT drive any vehicle or operate any machinery for 24 hours after surgery. 11. When you dress for your appointment, please wear loose fitting clothing that is appropriate to accommodate your surgical area procedure. BRING WITH YOU ANY DEVICES YOU MAY NEED: SARTHAK hose, ice machine, sling/swath, brace or special shoe, oversized zip-up or button up shirt, CPAP machine if staying overnight. 12. Do NOT wear jewelry, watches, or any piercings or metal for surgery- leave these valuables and money at home. 13. Do NOT wear contact lenses for surgery- glasses are okay if needed. 14. The anesthesiologist will talk with you the day of surgery and will ask you to sign a Consent Form. 15. Refrain from smoking or any type of tobacco use for at least 8 hours and marijuana for 24 hours prior to arrival for your surgery. 16. If a GREEN BLOOD band is given to you, please bring it with you for the day of surgery. 17. Notify your surgeon if you develop any illness before your surgery. 18. If you are staying overnight, please DO NOT BRING your home medications with you. 19. If you have any questions prior to surgery, please call the Preadmission Testing office at [phone], Mon.-Fri. 7 a.m.-3 p.m. Leave a voicemail if needed. Pre-Surgery Instructions: Medication Instructions losartan (COZAAR) 50 mg tablet Take morning of procedure omeprazole (PriLOSEC) 20 mg capsule Take morning of procedure PARoxetine (PAXIL) 10 mg tablet Stop taking 0 days prior to procedure rosuvastatin (CRESTOR) 10 mg tablet Stop taking 0 days prior to procedure solifenacin (VESICARE) 5 mg tablet Stop taking 0 days prior to procedure soy isofla/blk cohosh/mag bark (ESTROVEN ORAL) Stop taking 0 days prior to procedure How to Avoid an Infection after Your Surgery Your doctor will give you specific instructions, but remember: -ALWAYS wash hands before caring for your incision. -No picking, scratching, or rubbing your incision. -No creams, lotion, powder, rubbing alcohol or hydrogen peroxide on the incision (can harm the tissue and slow healing). -Your doctor will give you specific instructions for what type of dressing you will need and how often it will need changed for infection purposes. -No tight clothing on incision. -Do not allow anyone to touch your incision unless they are cleaning, checking, or redressing it (be sure they wash their hands first). -No contact of your incision with pets; avoid sleeping with pets. -Take full course of antibiotic if prescribed for you after surgery- do not stop unless directed to by your physician. You may also be given an antibiotic prior to your surgery to help prevent surgical site infections. -Eat a healthy and varied diet including proteins, fruits, and vegetables to help promote wound healing and keep blood sugars under control if you are diabetic. -Smoking slows the healing process by decreasing the amount of oxygen in your blood that is needed for tissue healing. Try to avoid or stop smoking if possible. LOOK at your incision each morning and each night to check the progress of healing. Some soreness, numbness, itching and/or mild bruising around the incision is normal. Call your doctor if you notice any of the following: -Increased redness or hardening around the incision area. -Increased pain at the incision site. -Incision feels hot to the touch. -Swelling or pulling apart of the incision edges. -Yellow or green drainage or foul odor coming from the incision. -Bleeding from the incision (apply pressure as needed). -Fever higher than 101 degrees Fahrenheit for more than 4 hours. SHOWERING: Your doctor will give you specific instructions, but remember: -Be careful getting into and out of the shower. -Showers should be quick (5 minutes or less). -Use a clean washcloth to gently wash your incision with soap and water and pat the area dry with a clean towel. -No re-using wash cloths or towels; get a fresh one to clean your incision. -Do not soak in the bathtub, go swimming or use a hot tub (Jacuzzi), or perform activities where your incision is submerged in water or exposed to any fluids or substances until instructed by your doctor. -If your have the sticky strips (steri-strips) over the incision, it is OK to shower with them. Do not remove them. Let them fall off on their own. If you have a question, call your doctor s office. Go to the follow-up appointment with your doctor. [facility] Miscellaneous Notes Preoperative Education Checklist- General Surgery date: 04/09/24 Surgery time: 0730 a.m. Arrival time: 0610 a.m. 1. Bring a photo ID and your insurance card with you the day of surgery. You will check in at the main lobby of the [facility]- registration desk is straight ahead as soon as you walk in. Tell them you are here for surgery. 2. If you have a Living Will/Durable Power of Food Technician for Health Care that is not on file here, please bring a copy the day of surgery. 3. Please shower/bathe the night before surgery with the provided soap or wipes. Do not shower the morning of surgery- you will do use wipes when you arrive here at the hospital before getting into your surgical gown. Do not shave the area of your procedure for 2 days prior to your surgery. 4. NO powder, lotion, perfume/cologne, aftershave, make-up, deodorant, or hair products after you have bathed. 5. NO nail upper sorbian/acrylic on at least one finger. If you are having a hand, wrist or foot surgery then all nail upper sorbian and artificial/acrylic nails must be removed from that hand or foot. 6. Avoid ALL Aspirin and non-steroidal anti-inflammatory drugs and certain vitamins (Ibuprofen, Advil, Aleve, Excedrin, Meloxicam, Celebrex, fish/krill oil, etc.) for 7 days prior to surgery as instructed by your surgeon and/or your prescribing doctor. Tylenol IS ALLOWED. If you are on Ticlid, Xarelto, Eliquis, Pradaxa, Plavix or Coumadin, please check with your prescribing doctor for instructions for when to stop them. 7. If you use an inhaler, continue to use it routinely. 8. Nothing to eat or drink (not even water, gum, mints, or hard candy!) AFTER midnight prior to your surgery. 9. Take only medications that you are instructed to on the morning of surgery with a TINY SIP OF WATER. 10. Choose a responsible adult that will be able to drive you home when you are discharged from your hospital stay for your surgery and can stay with you in your home for 24 hours after your procedure. You must NOT drive any vehicle or operate any machinery for 24 hours after surgery. 11. When you dress for your appointment, please wear loose fitting clothing that is appropriate to accommodate your surgical area procedure. BRING WITH YOU ANY DEVICES YOU MAY NEED: SARTHAK hose, ice machine, sling/swath, brace or special shoe, oversized zip-up or button up shirt, CPAP machine if staying overnight. 12. Do NOT wear jewelry, watches, or any piercings or metal for surgery- leave these valuables and money at home. 13. Do NOT wear contact lenses for surgery- glasses are okay if needed. 14. The anesthesiologist will talk with you the day of surgery and will ask you to sign a Consent Form. 15. Refrain from smoking or any type of tobacco use for at least 8 hours and marijuana for 24 hours prior to arrival for your surgery. 16. If a GREEN BLOOD band is given to you, please bring it with you for the day of surgery. 17. Notify your surgeon if you develop any illness before your surgery. 18. If you are staying overnight, please DO NOT BRING your home medications with you. 19. If you have any questions prior to surgery, please call the Preadmission Testing office at [phone], Mon.-Fri. 7 a.m.-3 p.m. Leave a voicemail if needed. Pre-Surgery Instructions: Medication Instructions losartan (COZAAR) 50 mg tablet Take morning of procedure omeprazole (PriLOSEC) 20 mg capsule Take morning of procedure PARoxetine (PAXIL) 10 mg tablet Stop taking 0 days prior to procedure rosuvastatin (CRESTOR) 10 mg tablet Stop taking 0 days prior to procedure solifenacin (VESICARE) 5 mg tablet Stop taking 0 days prior to procedure soy isofla/blk cohosh/mag bark (ESTROVEN ORAL) Stop taking 0 days prior to procedure How to Avoid an Infection after Your Surgery Your doctor will give you specific instructions, but remember: -ALWAYS wash hands before caring for your incision. -No picking, scratching, or rubbing your incision. -No creams, lotion, powder, rubbing alcohol or hydrogen peroxide on the incision (can harm the tissue and slow healing). -Your doctor will give you specific instructions for what type of dressing you will need and how often it will need changed for infection purposes. -No tight clothing on incision. -Do not allow anyone to touch your incision unless they are cleaning, checking, or redressing it (be sure they wash their hands first). -No contact of your incision with pets; avoid sleeping with pets. -Take full course of antibiotic if prescribed for you after surgery- do not stop unless directed to by your physician. You may also be given an antibiotic prior to your surgery to help prevent surgical site infections. -Eat a healthy and varied diet including proteins, fruits, and vegetables to help promote wound healing and keep blood sugars under control if you are diabetic. -Smoking slows the healing process by decreasing the amount of oxygen in your blood that is needed for tissue healing. Try to avoid or stop smoking if possible. LOOK at your incision each morning and each night to check the progress of healing. Some soreness, numbness, itching and/or mild bruising around the incision is normal. Call your doctor if you notice any of the following: -Increased redness or hardening around the incision area. -Increased pain at the incision site. -Incision feels hot to the touch. -Swelling or pulling apart of the incision edges. -Yellow or green drainage or foul odor coming from the incision. -Bleeding from the incision (apply pressure as needed). -Fever higher than 101 degrees Fahrenheit for more than 4 hours. SHOWERING: Your doctor will give you specific instructions, but remember: -Be careful getting into and out of the shower. -Showers should be quick (5 minutes or less). -Use a clean washcloth to gently wash your incision with soap and water and pat the area dry with a clean towel. -No re-using wash cloths or towels; get a fresh one to clean your incision. -Do not soak in the bathtub, go swimming or use a hot tub (Jacuzzi), or perform activities where your incision is submerged in water or exposed to any fluids or substances until instructed by your doctor. -If your have the sticky strips (steri-strips) over the incision, it is OK to shower with them. Do not remove them. Let them fall off on their own. If you have a question, call your doctor s office. Go to the follow-up appointment with your doctor. Hibiclens and surgical instructions reviewed. Patient verbalized understanding. documented in this encounter [facility] [employer] 03-24-2024 Nurse Note Preoperative Education Checklist- General Surgery date: 04/09/24 Surgery time: 0730 a.m. Arrival time: 0610 a.m. 1. Bring a photo ID and your insurance card with you the day of surgery. You will check in at the main lobby of the [facility]- registration desk is straight ahead as soon as you walk in. Tell them you are here for surgery. 2. If you have a Living Will/Durable Power of Food Technician for Health Care that is not on file here, please bring a copy the day of surgery. 3. Please shower/bathe the night before surgery with the provided soap or wipes. Do not shower the morning of surgery- you will do use wipes when you arrive here at the hospital before getting into your surgical gown. Do not shave the area of your procedure for 2 days prior to your surgery. 4. NO powder, lotion, perfume/cologne, aftershave, make-up, deodorant, or hair products after you have bathed. 5. NO nail upper sorbian/acrylic on at least one finger. If you are having a hand, wrist or foot surgery then all nail upper sorbian and artificial/acrylic nails must be removed from that hand or foot. 6. Avoid ALL Aspirin and non-steroidal anti-inflammatory drugs and certain vitamins (Ibuprofen, Advil, Aleve, Excedrin, Meloxicam, Celebrex, fish/krill oil, etc.) for 7 days prior to surgery as instructed by your surgeon and/or your prescribing doctor. Tylenol IS ALLOWED. If you are on Ticlid, Xarelto, Eliquis, Pradaxa, Plavix or Coumadin, please check with your prescribing doctor for instructions for when to stop them. 7. If you use an inhaler, continue to use it routinely. 8. Nothing to eat or drink (not even water, gum, mints, or hard candy!) AFTER midnight prior to your surgery. 9. Take only medications that you are instructed to on the morning of surgery with a TINY SIP OF WATER. 10. Choose a responsible adult that will be able to drive you home when you are discharged from your hospital stay for your surgery and can stay with you in your home for 24 hours after your procedure. You must NOT drive any vehicle or operate any machinery for 24 hours after surgery. 11. When you dress for your appointment, please wear loose fitting clothing that is appropriate to accommodate your surgical area procedure. BRING WITH YOU ANY DEVICES YOU MAY NEED: SARTHAK hose, ice machine, sling/swath, brace or special shoe, oversized zip-up or button up shirt, CPAP machine if staying overnight. 12. Do NOT wear jewelry, watches, or any piercings or metal for surgery- leave these valuables and money at home. 13. Do NOT wear contact lenses for surgery- glasses are okay if needed. 14. The anesthesiologist will talk with you the day of surgery and will ask you to sign a Consent Form. 15. Refrain from smoking or any type of tobacco use for at least 8 hours and marijuana for 24 hours prior to arrival for your surgery. 16. If a GREEN BLOOD band is given to you, please bring it with you for the day of surgery. 17. Notify your surgeon if you develop any illness before your surgery. 18. If you are staying overnight, please DO NOT BRING your home medications with you. 19. If you have any questions prior to surgery, please call the Preadmission Testing office at [phone], Mon.-Fri. 7 a.m.-3 p.m. Leave a voicemail if needed. Pre-Surgery Instructions: Medication Instructions losartan (COZAAR) 50 mg tablet Take morning of procedure omeprazole (PriLOSEC) 20 mg capsule Take morning of procedure PARoxetine (PAXIL) 10 mg tablet Stop taking 0 days prior to procedure rosuvastatin (CRESTOR) 10 mg tablet Stop taking 0 days prior to procedure solifenacin (VESICARE) 5 mg tablet Stop taking 0 days prior to procedure soy isofla/blk cohosh/mag bark (ESTROVEN ORAL) Stop taking 0 days prior to procedure How to Avoid an Infection after Your Surgery Your doctor will give you specific instructions, but remember: -ALWAYS wash hands before caring for your incision. -No picking, scratching, or rubbing your incision. -No creams, lotion, powder, rubbing alcohol or hydrogen peroxide on the incision (can harm the tissue and slow healing). -Your doctor will give you specific instructions for what type of dressing you will need and how often it will need changed for infection purposes. -No tight clothing on incision. -Do not allow anyone to touch your incision unless they are cleaning, checking, or redressing it (be sure they wash their hands first). -No contact of your incision with pets; avoid sleeping with pets. -Take full course of antibiotic if prescribed for you after surgery- do not stop unless directed to by your physician. You may also be given an antibiotic prior to your surgery to help prevent surgical site infections. -Eat a healthy and varied diet including proteins, fruits, and vegetables to help promote wound healing and keep blood sugars under control if you are diabetic. -Smoking slows the healing process by decreasing the amount of oxygen in your blood that is needed for tissue healing. Try to avoid or stop smoking if possible. LOOK at your incision each morning and each night to check the progress of healing. Some soreness, numbness, itching and/or mild bruising around the incision is normal. Call your doctor if you notice any of the following: -Increased redness or hardening around the incision area. -Increased pain at the incision site. -Incision feels hot to the touch. -Swelling or pulling apart of the incision edges. -Yellow or green drainage or foul odor coming from the incision. -Bleeding from the incision (apply pressure as needed). -Fever higher than 101 degrees Fahrenheit for more than 4 hours. SHOWERING: Your doctor will give you specific instructions, but remember: -Be careful getting into and out of the shower. -Showers should be quick (5 minutes or less). -Use a clean washcloth to gently wash your incision with soap and water and pat the area dry with a clean towel. -No re-using wash cloths or towels; get a fresh one to clean your incision. -Do not soak in the bathtub, go swimming or use a hot tub (Jacuzzi), or perform activities where your incision is submerged in water or exposed to any fluids or substances until instructed by your doctor. -If your have the sticky strips (steri-strips) over the incision, it is OK to shower with them. Do not remove them. Let them fall off on their own. If you have a question, call your doctor s office. Go to the follow-up appointment with your doctor. [facility] 03-24-2024 Nurse Note Hibiclens and surgical instructions reviewed. Patient verbalized understanding. [facility] 03-24-2024 History of Present illness Narrative Images from the original note were not included. Subjective Patient ID: Harini Case is a 58 y.o. female who presents for Consent Or Instructions (Pt is here today for consent and instructions for surgery, scheduled for 04-09-2024/SS: 6). HPI Presents for pre-surgical consultation, review of informed surgical consent, review of deangelo-operative and post-operative instructions. States her intent to proceed with elective surgical care of the left foot. Again, remains well satisfied with outcome of cheilectomy procedure of the right foot (2014). Toe Pain Medications Current Outpatient Medications: cephalexin (Keflex) 500 MG capsule, Take 1 capsule (500 mg) by mouth in the morning and 1 capsule (500 mg) in the evening and 1 capsule (500 mg) before bedtime., Disp: 40 capsule, Rfl: 1 Clobetasol Propionate (Clobetasol 17 Propionate) 0.5 % powder, Clobetasol 17 Propionate, Disp: , Rfl: Misc Natural Products ([employer]) tablet, as directed Orally, Disp: , Rfl: omeprazole (PriLOSEC) [address] capsule, Take 20 mg by mouth in the morning., Disp: , Rfl: PARoxetine (Paxil) 10 MG tablet, TAKE 1 TABLET (10MG) ON MON AND FRI THEN 1/2 TABLET (5MG) THER REST OF THE DAYS OF THE WEEK, Disp: , Rfl: rosuvastatin (Crestor) 10 MG tablet, Take 1 tablet by mouth at bedtime, Disp: , Rfl: Allergies Patient has no known allergies. Past Surgical History Past Surgical History: Procedure Laterality Date CHEILECTOMY Right 12/23/2014 RAQUEL HYSTERECTOMY 1999 Family History Family History Problem Relation Name Age of Onset Hypertension Mother Latoya Pamela Hyperlipidemia Mother Latoya Pamela Hyperlipidemia Father Edgardo Pamela Hypertension Father Edgardo Pamela Hypertension Maternal Grandmother Lyubov Rodriges Cancer Maternal Grandmother Lyubov Rodriges Cancer Maternal Grandfather Jaspreet Rodriges Hypertension Paternal Grandmother Edwige Pamela Stroke Paternal Grandmother Edwige Reyese CVA (cerebral infarction) Hypertension Paternal Grandfather Adam Santiago Heart disease Paternal Grandfather Adam Santiago Cancer Sibling Objective General Examination: GENERAL APPEARANCE: alert and oriented. Pleasant disposition.. Vascular: DORSALIS PEDIS PULSE: 2/4, bilaterally. POSTERIOR TIBIAL PULSE: 2/4, bilaterally. TEMPERATURE GRADIENT: warm to warm. EDEMA: Unremarkable ankle edema. CAPILLARY FILLING TIME(sec): capillary fill intact bilateral digits less than 3 secs. Neurologic: TINELS SIGN: negative along the tarsal canal. SHARP SENSATION: tactile and light touch sensation intact. Dermatologic: SKIN FINDINGS: Skin turgor is good. Well healed, non-dystrophic scar line 1st MTP joint right foot. HYPERTROPHIC LESION: no forefoot or digital keratotic pressure lesions are noted. NAIL PATHOLOGY: non-dystrophic. SKIN PATHOLOGY: texture, turgor, hair growth, within normal limits. Orthopedic: FOOT MORPHOLOGY: stance assessment: Symmetrical, stable, rectus foot alignment. JOINT RANGE OF MOTION: maintains functional ankle and subtalar joint range of motion bilateral. Right foot: Maintains > 60 degrees passive dorsiflexion 1st MTP joint; end range of motion is spongy and non-tender. DEFORMITIES: Focused exam left foot: Dorsal bunion deformity. PAIN ELICITED WITH PALPATION OF: Focused exam left foot: Moderate-fairly sharp 1st MTP joint line tenderness, with dorsal osteophyte formation appreciated. Negative for swelling, warmth or discoloration. Estimate 35-40 degrees passive 1st MTP joint dorsiflexion; without midrange crepitus. End range of motion is spongy-somewhat firm, acutely tender. Central MTP joints non-tender. PAIN ELICITED WITH ROM: Left foot: 1st MTP joint as noted. MUSCLE STRENGTH: no focal deficits. Radiology: 3 views left foot: Weight-bearing: DP, oblique, lateral: 12/03/2023: Unremarkable for acute osseous or joint pathology. Unremarkable for fracture or stress fracture changes. Mild degenerative arthritic changes of the 1st MTP joint with deangelo-articular dorsal ectopic osteophyte formation, consistent with dorsal bunion deformity. Assessment/Plan Progressively symptomatic hallux limitus deformity with DJD 1st MTP joint left foot. Satisfactory outcome cheilectomy procedure right foot (2014). Plan: Review of clinical and previous x-ray findings again for informed decision-making. Planned procedure: Cheilectomy procedure with mobilization of the sesamoid construct, lysis of capsular adhesions, osteochondral plasty as indicated; with amniotic tissue placement (Viaflow). Surgical technique reviewed in detail: Incisional approach appropriate lysis of adhesions and mobilization of the sesamoid construct; resection of reactive hypertrophic osteophyte formation, osteochondral plasty as deemed necessary with amniotic tissue injection. Benefits of procedure: Alleviate symptomatology. Alleviate joint pain. Improve joint and forefoot function. Improve tolerance to ADLs and footwear. Relevant risks and complications reviewed in detail: Skin/soft tissue infection. Osteomyelitis. Wound dehiscence and related complications. Scar complications. Entrapment neuritis. CRPS. Persistent joint pain and limitation of motion. Vascular compromise possible loss of digit. DVT/PE. Failure of the procedures to provide expected outcome or results. Deangelo-operative considerations reviewed. Post-operative instructions reviewed: Emphasis on elevation. Emphasis on dressing intact, clean and dry; not to be removed. Darco shoe with partial weight-bearing as tolerated left heel for balance; cane or walker assist. Comfort care: Ibuprofen 400 mg with Tylenol 1000 mg every 8 hours as needed for comfort. Patient will be retiring just prior to the scheduled procedure. Discussed post-operative timeline. The consent form is reviewed in detail, sufficient to her understanding, signed, witnessed and dated; there are no contraindications at this time; pending PCP and/or anesthesia clearance. Procedure: This note was created with the assistance of a speech recognition program. While intending to generate a timely document that accurately reflects the content of the visit, no guarantee can be provided that every grammatical or spelling mistake has been or will be identified or corrected. Thank you for your understanding. Bar Lyons DPM documented in this encounter [facility] 03-24-2024 Instructions Bar Lyons DPM - 03/24/2024 1:15 PM EST As noted documented in this encounter [facility] 12-03-2023 History of Present illness Narrative Images from the original note were not included. Subjective Patient ID: Harini Case is a 58 y.o. female who presents for Toe Pain (Pt returns today to discuss sx options for Lt foot, painful for her all the time. She isn't able to flex her toe without discomfort. /SS: 6). HPI Patient last in clinic in May of 2019. Chief complaint: Gradual progressively symptomatic 1st MTP joint/dorsal bunion deformity of the left foot. Patient has had intermittent symptoms for several years; progressive over the past 1-2 years; now impacting ADLs, walking activity and her ability to wear most shoes comfortably. Denies interval injury or trauma. Denies any persistent swelling or discoloration. Denies dysesthesias or radicular pain. Patient is well satisfied with outcome of cheilectomy procedure right foot; presents today to discuss similar elective surgical care options for the left foot. Toe Pain Medications Current Outpatient Medications: cephalexin (Keflex) 500 MG capsule, Take 1 capsule (500 mg) by mouth in the morning and 1 capsule (500 mg) in the evening and 1 capsule (500 mg) before bedtime., Disp: 40 capsule, Rfl: 1 Clobetasol Propionate (Clobetasol 17 Propionate) 0.5 % powder, Clobetasol 17 Propionate, Disp: , Rfl: Misc Natural Products ([employer]) tablet, as directed Orally, Disp: , Rfl: omeprazole (PriLOSEC) [address] capsule, Take 20 mg by mouth in the morning., Disp: , Rfl: PARoxetine (Paxil) 10 MG tablet, TAKE 1 TABLET (10MG) ON MON AND FRI THEN 1/2 TABLET (5MG) THER REST OF THE DAYS OF THE WEEK, Disp: , Rfl: rosuvastatin (Crestor) 10 MG tablet, Take 1 tablet by mouth at bedtime, Disp: , Rfl: Allergies Patient has no known allergies. Past Surgical History Past Surgical History: Procedure Laterality Date CHEILECTOMY Right 12/23/2014 RAQUEL HYSTERECTOMY 1999 Family History Family History Problem Relation Name Age of Onset Hypertension Mother Latoya Pamela Hyperlipidemia Mother Latoya Pamela Hyperlipidemia Father Edgardo Pamela Hypertension Father Edgardo Pamela Hypertension Maternal Grandmother Lyubov [place] Cancer Maternal Grandmother Lyubov [place] Cancer Maternal Grandfather Jaspreet Rodriges Hypertension Paternal Grandmother Edwige Reyese Stroke Paternal Grandmother Edwige Reyese CVA (cerebral infarction) Hypertension Paternal Grandfather Aadm Santiago Heart disease Paternal Grandfather Adam Santiago Cancer Sibling Objective General Examination: GENERAL APPEARANCE: alert and oriented. Pleasant disposition.. Vascular: DORSALIS PEDIS PULSE: 2/4, bilaterally. POSTERIOR TIBIAL PULSE: 2/4, bilaterally. TEMPERATURE GRADIENT: warm to warm. EDEMA: Unremarkable ankle edema. CAPILLARY FILLING TIME(sec): capillary fill intact bilateral digits less than 3 secs. Neurologic: TINELS SIGN: negative along the tarsal canal. SHARP SENSATION: tactile and light touch sensation intact. Dermatologic: SKIN FINDINGS: Skin turgor is good. Well healed, non-dystrophic scar line 1st MTP joint right foot. HYPERTROPHIC LESION: no forefoot or digital keratotic pressure lesions are noted. NAIL PATHOLOGY: non-dystrophic. SKIN PATHOLOGY: texture, turgor, hair growth, within normal limits. Orthopedic: FOOT MORPHOLOGY: stance assessment: Symmetrical, stable, rectus foot alignment. JOINT RANGE OF MOTION: maintains functional ankle and subtalar joint range of motion bilateral. Right foot: Maintains > 60 degrees passive dorsiflexion 1st MTP joint; end range of motion is spongy and non-tender. DEFORMITIES: Focused exam left foot: Dorsal bunion deformity. PAIN ELICITED WITH PALPATION OF: Focused exam left foot: Moderate-fairly sharp 1st MTP joint line tenderness, with dorsal osteophyte formation appreciated. Negative for swelling, warmth or discoloration. Estimated 35-40 degrees passive 1st MTP joint dorsiflexion; without midrange crepitus. End range of motion is spongy-somewhat firm, acutely tender. Central MTP joints non-tender. PAIN ELICITED WITH ROM: Left foot: 1st MTP joint as noted. MUSCLE STRENGTH: no focal deficits. Radiology: 3 views left foot: Weight-bearing: DP, oblique, lateral: 0 12/03/2023: Unremarkable for acute osseous or joint pathology. Unremarkable for fracture or stress fracture changes. Mild degenerative arthritic changes of the 1st MTP joint with deangelo-articular dorsal ectopic osteophyte formation, consistent with dorsal bunion deformity. Assessment/Plan Progressively symptomatic hallux limitus deformity with DJD 1st MTP joint left foot. Satisfactory outcome cheilectomy procedure right foot. Plan: Review of clinical and x-ray findings, etiology and contributing/aggravating factors, treatment strategy, rationale and objectives. In light of satisfactory outcome right foot, patient states her intention to proceed with elective surgical care of the left foot. Recommendation: Cheilectomy procedure with osteochondroplasty of the 1st MTP joint with viaflow or epicord amniotic tissue. Procedure discussed in sufficient detail to allow for informed decision-making. Procedure: This note was created with the assistance of a speech recognition program. While intending to generate a timely document that accurately reflects the content of the visit, no guarantee can be provided that every grammatical or spelling mistake has been or will be identified or corrected. Thank you for your understanding. Bar Lyons DPM documented in this encounter [facility] 12-03-2023 Instructions Bar Lyons DPM - 12/03/2023 3:30 PM EDT As noted documented in this encounter [facility] 04-16-2023 History of Present illness Narrative Reason for Appointment: Patient ID: Harini Case is a 58 y.o. female who presents for Well Women Visit Patient presents today for Annual Exam appointment. Current Medications: has a current medication list which includes the following prescription(s): paroxetine, rosuvastatin, cephalexin, clobetasol, clobetasol 17 propionate, lovastatin, [employer]ro[employer] energy, and omeprazole. Medical History: Active Ambulatory Problems Diagnosis Date Noted No Active Ambulatory Problems Resolved Ambulatory Problems Diagnosis Date Noted No Resolved Ambulatory Problems Past Medical History: Diagnosis Date Acid reflux Bladder problem BMI 27.0-27.9,adult Depression screening Headache Hypercholesterolemia (CMS/HCC) Osteopenia Osteopenia of both hips Personal history of medical treatment Family History Problem Relation Name Age of Onset Hypertension Mother Hyperlipidemia Mother Hyperlipidemia Father Hypertension Father Hypertension Maternal Grandmother Cancer Maternal Grandmother Cancer Maternal Grandfather Hypertension Paternal Grandmother Stroke Paternal Grandmother CVA (cerebral infarction) Hypertension Paternal Grandfather Heart disease Paternal Grandfather Cancer Sibling Social History Tobacco Use Smoking status: Never Smokeless tobacco: Not on file Substance Use Topics Alcohol use: Yes Comment: Occasional alcohol use Drug use: Never Past Surgical History: Procedure Laterality Date CHEILECTOMY Right 12/23/2014 RAQUEL HYSTERECTOMY 1999 No Known Allergies Review of Systems: Review of Systems Constitutional: Negative. HENT: Negative. Eyes: Negative. Respiratory: Negative. Cardiovascular: Negative. Gastrointestinal: Negative. Genitourinary: Positive for vaginal pain. Musculoskeletal: Negative. Skin: Negative. Neurological: Negative. All other systems reviewed and are negative. Hematological: Negative. Endocrine: Negative. Allergic/Immunologic: Negative. Objective Physical Exam Constitutional: Appearance: Normal appearance. She is well-developed. Genitourinary: Vulva normal. Vaginal cuff intact. Cervix is not absent. Uterus is not absent. Breasts: Breasts are soft. Right: Normal. Left: Normal. Cardiovascular: Rate and Rhythm: Normal rate and regular rhythm. Abdominal: General: Bowel sounds are normal. There is no distension. Palpations: Abdomen is soft. Tenderness: There is no abdominal tenderness. There is no guarding or rebound. Musculoskeletal: General: No swelling. Normal range of motion. Right lower leg: No edema. Left lower leg: No edema. Neurological: Mental Status: She is alert and oriented to person, place, and time. Skin: General: Skin is warm and dry. Psychiatric: Mood and Affect: Mood normal. Behavior: Behavior normal. Vitals and nursing note reviewed. Exam conducted with a insurance account manager present. Vitals: Estimated body mass index is 28.41 kg/m as calculated from the following: Height as of 04/10/22: 5' 6 . Weight as of this encounter: 176 lb. BP: 126/78 No LMP recorded. Assessment/Plan Encounter Diagnoses Name Primary? Well woman exam with routine gynecological exam Breast cancer screening by mammogram Vaginal irritation Patient presents today for an annual exam. Patient states she is doing well and has no complaints. Pap was obtained without difficulty and patient given mammogram order to have scheduled/obtained. Refill for clobetasol cream and keflex faxed to pharmacy. Follow Up: Patient is to return in one year for annual unless needed otherwise. Documented by Cindy Chawla LPN on behalf of: Berenice Casarez DO documented in this encounter [facility] 02-21-2016 Miscellaneous Notes ESR DONE Spoke to patient. Scheduled on 04/23/[address] Bhandari at 830 Patient also provided with fast track injection number for [facility] : [phone] DIAZ [id number] -DM,-THIN Please assist pt with scheduling injection Dr Bhandari will be gone until next year Next available with Dr Bhandari or pt can schedule at another location of pt's choice [place], [place] From Dr Mullen office note Recommend DIAZ C6-7 Diagnosis Radiculopathy, cervical region Patient calling to schedule injections with Dr. Bhandari. Patient was referred by Dr. Mullen, Order in patients chart states consult to spin intervention. Patient is requesting a call back at [phone]. Please review and advise.. 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 Pain in joint of left foot Difficulty walking Difficulty in walking documented in this encounter [facility] note* Diagnosis Postoperative visit- Primary Acquired hallux limitus of left foot 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 Advance Directive(s) 04/23/2016 7:57 AM Summary Purpose Family History No Family History Records FoundNo Family History Records FoundNo Family History Records FoundNo Family History Records Found Additional Source Comments Source Comments (unrecognize d section and content) In the event this informatio n is protected by the Federal Confidentiality of Alcohol and Drug Abuse Patient Records regulations: The Federal rules restrict any use of the information to criminally investigate or prosecute any alcohol or drug abuse patient.[facility] Reason for Visit (unrecogniz ed section and content) Reason Onset Date Comments Appointment 02/21/2016 Reason Comments Well Women Visit Reason Comments Toe Pain Pt returns today to discuss sx options for Lt foot, painful for her all the time. She isn't able to flex her toe without discomfort. SS: 6 Reason Comments Consent Or Instructions Pt is here today for consent and instructions for surgery, scheduled for 04-09-2024SS: 6 Reason Comments Pre-op Exam left foot, Dr. Vin Lyons 04/09/24, PAT 03/24/24 Reason Comments POV#1 Harini Evie 59yo pr esents for Post Op#1. Patient is taking Tylenol 400mg 2x daily. Reason Comments Post-op Pt is here today for her 2nd POV, she states some quick shooting pain described as zingers random times. INFORMATION SOURCE (unrecogn ized section and content) DATE CREATED AUTHOR 04/17/2022 [facility] DATE CREATED AUTHOR AUTHOR'S ORGANIZ ATION 03/29/2024 [facility] DATE CREATED AUTHOR AUTHOR'S ORGANIZ ATION 04/11/2024 [facility] DATE CREATED AUTHOR AUTHOR'S ORGANIZ ATION 04/23/2024 [facility] [employer] Care Teams (unrecognized sec tion and content) [employer] Director Relationship Specialty Start Date End Date Varun Azul MD [address] [place] [address], [address] [place] [address] PCP - General Family Medicine 04/16/23 [employer] Director Relationship Specialty Start Date End Date Varun Azul MD [address] [place] [address], [address] [place] [address] PCP - General Family Medicine 04/16/23 [employer] Director Relationship Specialty Start Date End Date Varun Azul MD [address] [place] [address], [address] [place] [address] PCP - General Family Medicine 04/16/23 [employer] Director Relationship Specialty Start Date End Date Varun Azul MD [address] [place] [address], [address] [place] [address] PCP - General Family Medicine 04/16/23 [facility] Director Relationship Specialty Start Date End Date Varun Azul MD [address] [place] [address], [address] [place] [address] PCP - General Family Medicine 04/16/23 [facility] Director Relationship Specialty Start Date End Date Varun Azul MD [address] [place] [address], [address] [place] [address] PCP - General Family Medicine 04/16/23 [facility] Director Relationship Specialty Start Date End Date Varun Azul MD [address] [place] [address], [address] [place] [address] PCP - General Pediatrics 01/14/18 [facility] Director Relationship Specialty Start Date End Date Varun Azul MD [address] [place] [address], [address] [place] [address] PCP - General Pediatrics 01/14/18 [facility] Director Relationship Specialty Start Date End Date Varun Azul MD [address] [place] [address], [address] [place] [address] PCP - General Family Medicine 04/16/23 [facility] Director Relationship Specialty Start Date End Date Varun Azul MD [address] [place] [address], [address] [place] [address] PCP - General Family Medicine 04/16/23 [facility] Director Relationship Specialty Start Date End Date Varun Azul MD [address] [place] [address], [address] [place] [address] PCP - General Pediatrics 01/14/18 FOR RECORDS PERTAINING TO PATIENTS WHO ARE OR HAVE BEEN ENROLLED IN A CHEMICAL DEPENDENCY/SUBSTANCEABUSE PROGRAM, SOME INFORMATION MAY BE OMITTED. This clinical summary was aggregated from multiple sources. Caution should be exercised in using it in the provision of clinical care. This summary normalizes information from multiple sources, and as a consequence, information in this document may materially change the coding, format and clinical context of patient data. In addition, data may be omitted in some cases. CLINICAL DECISIONS SHOULD BE BASED ON THE PRIMARY CLINICAL RECORDS. [facility] [employer] [facility]. provides no warranty or guarantee of the accuracy or completeness of information in this document.
== END 2024-04-28 21:52 | disposition home or self-care (01) ==
LOC: LAB 21:51
PROVIDERS: Visit Provider Obstetrics & Gynecology
DX: Z01.419 Encounter for gynecological examination (general) (routine) without abnormal findings (principal)
CPT/HCPCS: 87624; 88175